=== PATIENT | female | born 1980 ===

== ENCOUNTER 2018-03-15 08:37 | Emergency (ER) | payer OTHER ==
[2018-03-15 08:50] VITALS: O2SAT 99
[2018-03-15] MEDS ORDERED: Sodium Chloride 0.9% 1,000 ML IV ONE (09:43)
--- NOTE | 2018-03-15 10:00 | C.PDOC ---
History Of Present Illness 37 y/o female presents to ED with c/o left lower abdominal pain since 1am this morning associated with mild constipation and hematuria Patient denies fever, chills, nausea, vomiting, diarrhea, dysuria, blood in stool or any other com plaints at this time. Time Seen by Provider: 03/15/18 09:13 Chief Complaint (Nursing): Abdominal Pain History Per: Patient History/Exam Limitations: no limitations Onset/Duration Of Symptoms: Days Current Symptoms Are (Timing): Still Present Location Of Pain/Discomfort: LLQ Past Medical History Reviewed: Historical Data, Nursing Documentation, Vital Signs Vital Signs: Last Vital Signs Temp 98.1 F 03/15/18 08:46 Pulse 97 H 03/15/18 08:46 Resp 17 03/15/18 08:46 BP 157/93 H 03/15/18 08:46 Pulse Ox 99 03/15/18 08:46 - Medical History PMH: HTN Surgical History: Cholecystectomy Family History: States: No Known Family Hx - Social History Hx Alcohol Use: No Hx Substance Use: No - Immunization History Hx Tetanus Toxoid Vaccination: No Hx Influenza Vaccination: No Hx Pneumococcal Vaccination: No Review Of Systems Constitutional: Negative for: Fever, Chills Gastrointestinal: Positive for: Abdominal Pain, Constipation. Negative for: Nausea, Vomiting, Diarrhea Genitourinary: Positive for: Hematuria. Negative for: Dysuria, Vaginal Discharge, Vaginal Bleeding Skin: Negative for: Rash Physical Exam - Physical Exam Appears: Non-toxic, No Acute Distress Skin: Warm, Dry, No Rash Head: Atraumatic, Normacephalic Eye(s): bilateral: Normal Inspection Oral Mucosa: Moist Neck: Normal ROM, Supple Cardiovascular: Rhythm Regular Respiratory: Normal Breath Sounds, No Rales, No Rhonchi, No Wheezing Gastrointestinal/Abdominal: Soft, Tenderness (Minimal LLQ), No Guarding, No Rebound Back: No CVA Tenderness Extremity: Normal ROM, No Pedal Edema, Capillary Refill (<2 seconds) Neurological/Psych: Oriented x3, Normal Speech, Normal Cognition ED Course And Treatment - Laboratory Results Result Diagrams: 03/15/18 10:00 03/15/18 10:00 O2 Sat by Pulse Oximetry: 99 (RA) Pulse Ox Interpretation: Normal - CT Scan/US CT abd/pelvis Other Rad Studies (CT/US): Read By Radiologist, Radiology Report Reviewed CT/US Interpretation: IMPRESSION: Mild fullness of the left renal collecting system/ureter with 4 x 2 mm calcification within the urinary bladder distal to the left UVJ; findings consistent with recently passed calculus. Not visualized, presumably due to cholecystectomy. IUD. Medical Decision Making Medical Decision Making: Plan: * Blood work * UA * POC urine preg * Ibuprofen Hematuria noted on UA. CT abd/pelvis without contrast ordered to evaluate for renal stone. CT results noted. Patient reported relief of pain on re-eval. Imaging and lab results discussed. Advised NSAIDs if pain recurs, however she likely had a renal stone that has since passed. Disposition - Disposition Disposition: HOME/ ROUTINE Disposition Time: 13:04 Condition: STABLE Additional Instructions: SHERICE KAPOOR, thank you for letting us take care of you today. Your provider was Eva Negro MD and you were treated for STOMACH PAIN. The emergency medical care you received today was directed at your acute symptoms. If you were prescribed any medication, please fill it and take as directed. It may take several days for your symptoms to resolve. Return to the Emergency Department if your symptoms worsen, do not improve, or if you have any other problems. Please contact your doctor or call one of the physicians/clinics you have been referred to that are listed on the Patient Visit Information form that is included in your discharge packet. Bring any paperwork you were given at discharge with you along with any medications you are taking to your follow up visit. Our treatment cannot replace ongoing medical care by a primary care provider outside of the emergency department. Thank you for allowing the [facility] team to be part of your care today. If you had an X-Ray or CT scan: A Radiologist will review the ED reading if any change in treatment is needed we will contact you. If you had a blood, urine, or wound culture: It will take several days for the results, if any change in treatment is needed we will contact you. If you had an STI test: It will take 48 hours for the results. Please call after 1 week if you have not heard back. Instructions: Kidney Stones (DC) Forms: D2S (Sinhala) Print Language: ITALIAN - Clinical Impression Clinical Impression: Kidney stone - Scribe Statement The provider has reviewed the documentation as recorded by the Stephonibe Maricsa Smith All medical record entries made by the Scribe were at my direction and personally dictated by me. I have reviewed the chart and agree that the record accurately reflects my personal performance of the history, physical exam, medical decision making, and the department course for this patient. I have also personally directed, reviewed, and agree with the discharge instructions and disposition.
[2018-03-15 10:08] LABS: HEMOGLOBIN 13.1 g/dL (11.0-16.0); MEAN CELL VOLUME 88.3 fL (81.0-99.0); MEAN CORPUSCULAR HEMOGLOBIN 30.3 pg (27.0-31.0); MEAN CORPUSCULAR HGB CONC 34.3 g/dL (33.0-37.0); MEAN PLATELET VOLUME 6.9 fL (7.2-11.7); RBC 4.33 Mil/uL (3.80-5.20); RED CELL DISTRIBUTION WIDTH 12.8 % (11.5-14.5); WHITE BLOOD COUNT 10.6 K/uL (4.8-10.8)
[2018-03-15 10:11] LABS: SQUAMOUS EPITHIAL 2 /hpf (0-5); URINE BACTERIA OCC (<OCC); URINE BILIRUBIN NEGATIVE (NEGATIVE); URINE BLOOD 3+ (NEGATIVE); URINE CLARITY Hazy (Clear); URINE COLOR Yellow (YELLOW); URINE GLUCOSE (UA) 3+ mg/dL (Normal); URINE LEUKOCYTE ESTERASE TRACE Leu/uL (Negative); URINE PROTEIN NEGATIVE (NEGATIVE); URINE UROBILINOGEN NORMAL mg/dL (0.2-1.0)
[2018-03-15 10:23] LABS: ALT/SGPT 27 U/L (9-52); AST/SGOT 22 U/L (14-36); BLOOD UREA NITROGEN 14 mg/dL (7-17); CALCIUM 8.9 mg/dl (8.6-10.4); GFR NON-AFRICAN AMERICAN > 60; LIPASE 48 U/L (23-300)
[2018-03-15 11:49] VITALS: PULSE 88; RESP 18
--- NOTE | 2018-03-15 11:54 | CT ---
PROCEDURE: CT Abdomen and Pelvis without Oral or IV contrast. HISTORY: r/o kidney stone COMPARISON: None available. TECHNIQUE: Contiguous axial images of the abdomen and pelvis. No oral or IV contrast administered. Coronal and Sagittal reformats generated and reviewed. Radiation dose: Total exam DLP = 1187.76 mGy-cm. This CT exam was performed using one or more of the following dose reduction techniques: Automated exposure control, adjustment of the mA and/or kV according to patient size, and/or use of iterative reconstruction technique. FINDINGS: There is limited evaluation of the solid organs without the administration of IV contrast. LOWER THORAX: No visible consolidation, pleural effusion, or pneumothorax. LIVER: Unremarkable unenhanced appearance. GALLBLADDER AND BILE DUCTS: Not visualized, presumably due to cholecystectomy. PANCREAS: Unremarkable unenhanced appearance. SPLEEN: Unremarkable unenhanced appearance. ADRENALS: Unremarkable unenhanced appearance. KIDNEYS AND URETERS: Mild fullness of the left renal collecting system/ureter with 4 x 2 mm calcification within the urinary bladder distal to the left UVJ; findings consistent with recently passed calculus. BLADDER: See above. REPRODUCTIVE: Uterus is present. IUD. APPENDIX: The appendix appears within normal limits of caliber. No secondary signs of acute appendicitis. BOWEL: The stomach is nondistended. Lack of oral contrast limits evaluation for bowel pathology. The bowel loops appear within normal limits of caliber without evidence of intestinal obstruction. PERITONEUM: No significant free fluid. No definite free air. LYMPH NODES: No bulky lymphadenopathy identified. VASCULATURE: No atherosclerotic calcification present. No aortic aneurysm. BONES: No acute osseous abnormality is detected. OTHER FINDINGS: None. IMPRESSION: Mild fullness of the left renal collecting system/ureter with 4 x 2 mm calcification within the urinary bladder distal to the left UVJ; findings consistent with recently passed calculus. Not visualized, presumably due to cholecystectomy. IUD.
[2018-03-15 13:12] VITALS: BP 107/76; TEMP 98.9
== END 2018-03-15 13:12 | disposition home or self-care (01) ==
LOC: C.ER 08:37
DX: N20.0 Calculus of kidney (principal)

== ENCOUNTER 2018-04-28 09:40 | Outpatient (CLI) | payer SELFPAY | END 2018-04-28 09:41 | disposition home or self-care (01) | LOC: C.LAB 09:40 ==